=== PATIENT | female | born 1935 | race Asian ===

== ENCOUNTER → 2016-10-29 | Outpatient (CLI) | payer MEDICARE, OTHER | LOC: RAD 18:35 | PROVIDERS: ATTEND Specialist | DX: C73 Malignant neoplasm of thyroid gland (principal); C34.90 Malignant neoplasm of unspecified part of unspecified bronchus or lung | CPT/HCPCS: 78815; A9552 ==

== ENCOUNTER 2017-08-21 08:17 | Day surgery (SDC) | payer MEDICARE, OTHER ==
[~2017-08-21 08:17] MED LIST: BUPIVACAINE HCL 0.75% INJ/PF (7.5 MG/1 ML) 10 ML SDV OD PRN; KETOROLAC TROMETHAMINE 0.45% 4 DROP/0.4 ML DROPERETTE OD PRN; LIDOCAINE 4% INJ/PF (40 MG/ML) 5 ML AMPUL OD PRN; MIDAZOLAM 2 MG/2 ML INJ ONE
[2017-08-21] MEDS: TROPICAMIDE 1% OPH SOLN 3 ML OD PRN ×3 (08:34→09:10)
[2017-08-21] MEDS: CYCLOPENTOLATE 0.2%/PHENYLEPHRINE 1% OPH SOLN 2 ML OD PRN ×3 (08:34→09:09)
[2017-08-21] MEDS: BESIFLOXACIN HCL 0.6% OPH SUSP 5 ML BOTTLE OD PRN ×3 (08:35→09:44)
[2017-08-21] MEDS: TETRACAINE HCL 0.5% OPH SOLN 0.6 ML DROPERETTE OD PRN ×2 (08:36→09:10)
[2017-08-21] MEDS ORDERED: EPINEPHRINE INJ/PF 1 MG/1 ML AMPULE ONE (08:45)
[2017-08-21] MEDS ORDERED: CHONDR SU A NA/HYALUR INTRAOC KIT (SURGICARE) ONE (08:46)
[2017-08-21] MEDS ORDERED: LIDOCAINE 1% INJ-PF (10 MG/ML) 30 ML SDV ONE (08:46)
--- NOTE | 2017-08-21 09:59 | [facility] OPERATIVE REPORT E ---
[facility] Operative Report NAME: YADIRA RIOS AGE: 82Y DATE OF SURGERY: 08/21/2017 ROOM: PREOPERATIVE DIAGNOSIS: Cataract, right eye. POSTOPERATIVE DIAGNOSIS: Cataract, right eye. PROCEDURE PERFORMED: Phacoemulsification with posterior chamber intraocular lens, right eye. SURGEON: MIRNA MCCRARY M.D. ANESTHESIA: Topical with MAC. INDICATIONS FOR SURGERY: Difficulty reading captions on TV and night driving. Best corrected visual acuity 20/30. PROCEDURE: The patient was brought to the Operating Room and placed on the operative table. Following tetracaine drops, topical anesthesia was administered. This consisted of instrument wipe pledgets soaked in a solution of 4% Xylocaine mixed with 0.75% Marcaine in a 1:2 ratio. A 2 x 1 cm pledget was placed in the superior fornix. A 1 x 1 cm pledget was placed in the inferior fornix. The eye was patched shut for 5 minutes. The patch was removed. The eye was sterilely prepped and draped in the usual manner. Lid speculum was placed in the eye. The pledgets were removed and 4-0 black silk sutures were placed around the superior and the inferior rectus muscles to be used as traction. A conjunctival peritomy was made at the 10 o'clock position. Hemostasis was obtained with bipolar cautery. A posterior limbal groove was created using a crescent knife and dissected anteriorly towards the cornea. A sharp point blade was used to create a paracentesis site at the 2 o'clock position. A 2.4 mm keratome was used to enter the anterior chamber through the groove. Viscoelastic was injected into the anterior chamber. An anterior capsulotomy was performed using Utrata forceps in a capsulorrhexis fashion. Hydrodissection and hydrodelineation were performed. Phacoemulsification was performed in wgkxfq-msp-sozlzcw technique. A total of 6.21 CDE phaco time was used. Following this, the I/A unit was used to remove residual cortex. Viscoelastic was injected into the capsular bag. Intraocular lens model [id number], 19.0 diopters, serial number [id number], was placed in the capsular bag. The I/A unit was used to remove residual viscoelastic. The wound was seen to be watertight under high and low pressure, and no sutures were placed. The intraocular lens was well centered. The pressure was adjusted in the eye to normal pressure. The 4-0 black silk sutures and lid speculum were removed. The eye was shielded after Besivance drops were placed. The patient tolerated the procedure well and was sent to the Recovery Room in good condition. DICTATING PHYSICIAN: MIRNA MCCRARY M.D. [id number] PHY#: [id number] ID: [id number] JOB#: [id number] ACCT: [id number] cc:MIRNA MCCRARY M.D. >
--- NOTE | 2017-08-21 10:00 | [facility] DISCHARGE SUMMARY E ---
[facility] Discharge Summary NAME: YADIRA RIOS AGE: 82Y ADMITTED: 08/21/2017 DISCHARGED: 08/21/2017 FINAL DIAGNOSIS: Cataract, right eye. HOSPITAL COURSE: The patient is an 82-year-old lady undergoing uneventful cataract extraction with intraocular lens implant, right eye, on 08/21/2017. She will be discharged to home. She was instructed to resume preoperative medications, to take Tylenol as needed for discomfort, to keep her eye shielded, to use Besivance, Durezol and Ilevro at 3 p.m. and 8 p.m., and to follow up in my office in 1 day. DICTATING PHYSICIAN: MIRNA MCCRARY M.D. [id number] PHY#: [id number] ID: [id number] JOB#: [id number] ACCT: [id number] cc:MIRNA MCCRARY M.D. >
== END 2017-08-21 10:29 | disposition home or self-care (01) ==
LOC: SC 08:17
PROVIDERS: ATTEND Ophthalmology
DX: H25.813 Combined forms of age-related cataract, bilateral (principal); H40.013 Open angle with borderline findings, low risk, bilateral; H04.123 Dry eye syndrome of bilateral lacrimal glands; H35.363 Drusen (degenerative) of macula, bilateral; E03.9 Hypothyroidism, unspecified; M19.90 Unspecified osteoarthritis, unspecified site; F03.90 Unspecified dementia, unspecified severity, without behavioral disturbance, psychotic disturbance, mood disturbance, and anxiety; I10 Essential (primary) hypertension; Z79.899 Other long term (current) drug therapy
CPT/HCPCS: 66984; V2632; J2250; J3490 ×4; A9270; J0171

== ENCOUNTER 2017-09-11 10:04 | Day surgery (SDC) | payer MEDICARE, OTHER ==
[~2017-09-11 10:04] MED LIST changes: -BUPIVACAINE HCL 0.75% INJ/PF (7.5 MG/1 ML) 10 ML SDV OD PRN; +BUPIVACAINE HCL 0.75% INJ/PF (7.5 MG/1 ML) 10 ML SDV OS PRN; +CHONDR SU A NA/HYALUR INTRAOC KIT (SURGICARE) ONE; +EPINEPHRINE INJ/PF 1 MG/1 ML AMPULE ONE; -KETOROLAC TROMETHAMINE 0.45% 4 DROP/0.4 ML DROPERETTE OD PRN; +KETOROLAC TROMETHAMINE 0.45% 4 DROP/0.4 ML DROPERETTE OS PRN; -LIDOCAINE 4% INJ/PF (40 MG/ML) 5 ML AMPUL OD PRN; +LIDOCAINE 4% INJ/PF (40 MG/ML) 5 ML AMPUL OS PRN; -MIDAZOLAM 2 MG/2 ML INJ ONE
[2017-09-11] MEDS: CYCLOPENTOLATE 0.2%/PHENYLEPHRINE 1% OPH SOLN 2 ML OS PRN ×3 (10:29→10:49)
[2017-09-11] MEDS: TROPICAMIDE 1% OPH SOLN 3 ML OS PRN ×3 (10:29→10:49)
[2017-09-11] MEDS: BESIFLOXACIN HCL 0.6% OPH SUSP 5 ML BOTTLE OS PRN ×3 (10:29→11:48)
[2017-09-11] MEDS: TETRACAINE HCL 0.5% OPH SOLN 0.6 ML DROPERETTE OS PRN ×2 (10:30→10:49)
[2017-09-11] MEDS ORDERED: FENTANYL CITRATE INJ/PF 100 MCG/2 ML AMPUL ONE (10:55)
[2017-09-11] MEDS ORDERED: MIDAZOLAM 2 MG/2 ML INJ ONE (10:55)
--- NOTE | 2017-09-11 11:58 | [facility] OPERATIVE REPORT E ---
[facility] Operative Report NAME: YADIRA RIOS AGE: 82Y DATE OF SURGERY: 09/11/2017 ROOM: PREOPERATIVE DIAGNOSIS: CATARACT, LEFT EYE. POSTOPERATIVE DIAGNOSIS: CATARACT, LEFT EYE. PROCEDURE PERFORMED: Phacoemulsification with posterior chamber intraocular lens, left eye. SURGEON: Ginger Mccrary MD ANESTHESIA: Topical with MAC. INDICATIONS FOR SURGERY: Difficulty with glare from lights with driving. Best corrected visual acuity 20/30. PROCEDURE: The patient was brought to the operating room and placed on the operative table. Following tetracaine drops, topical anesthesia was administered. This consisted of instrument wipe pledgets soaked in a solution of 4% Xylocaine mixed with 0.75% Marcaine in a 1:2 ratio. A 2 x 1 cm pledget was placed in the superior fornix. A 1 x 1 cm pledget was placed in the inferior fornix. The eye was patched shut for 5 minutes. The patch was removed. The eye was sterilely prepped and draped in the usual manner. Lid speculum was placed in the eye. The pledgets were removed. 4-0 black silk sutures were placed around the superior and the inferior rectus muscles to be used as traction. A conjunctival peritomy was made at the 10 o'clock position. Hemostasis was obtained with bipolar cautery. A posterior limbal groove was created using a crescent knife and dissected anteriorly towards the cornea. A sharp point blade was used to create a paracentesis site at the 2 o'clock position. A 2.4 mm keratome was used to enter the anterior chamber through the groove. Viscoelastic was injected into the anterior chamber. An anterior capsulotomy was performed using Utrata forceps in a capsulorrhexis fashion. Hydrodissection and hydrodelineation were performed. Phacoemulsification was performed in vuyqph-srb-ypmnqvx technique. A total of 43 seconds phaco time was used. Following this, the I/A unit was used to remove residual cortex. Viscoelastic was injected into the capsular bag. Intraocular lens Model SN60WF, 19.0 diopter, serial number [id number] was placed in the capsular bag. The I/A unit was used to remove residual viscoelastic. The wound was seen to be watertight under high and low pressure, and no sutures were placed. The intraocular lens was well centered. The pressure was adjusted in the eye to normal pressure. The 4-0 black silk sutures and lid speculum were removed. The eye was shielded after Besivance drops were placed. The patient tolerated the procedure well and was sent to the recovery room in good condition. DICTATING PHYSICIAN: GINGER MCCRARY M.D. [id number] PHY#: [id number] ID: [id number] JOB#: [id number] ACCT: [id number] cc:GINGER MCCRARY M.D. >
--- NOTE | 2017-09-11 12:04 | [facility] DISCHARGE SUMMARY E ---
[facility] Discharge Summary NAME: YADIRA RIOS AGE: 82Y ADMITTED: 09/11/2017 DISCHARGED: 09/11/2017 PREOPERATIVE DIAGNOSIS: CATARACT, LEFT EYE. POSTOPERATIVE DIAGNOSIS: CATARACT, LEFT EYE. HOSPITAL COURSE: Patient is an 82-year-old lady who underwent uneventful cataract extraction with intraocular lens implant, left eye, on 09/11/2017. DISPOSITION: She will be discharged to home. She was instructed to resume preoperative medications; take Tylenol as needed for discomfort; to keep her eye shielded; to use Besivance, Durezol, and Ilevro at 3:00 p.m. and 8:00 p.m.; and to follow up in my office in 1 day. DICTATING PHYSICIAN: MIRNA MCCRARY M.D. [id number] PHY#: [id number] ID: [id number] JOB#: [id number] ACCT: [id number] cc:MIRNA MCCRARY M.D. >
== END 2017-09-11 12:25 | disposition home or self-care (01) ==
LOC: SC 10:04
PROVIDERS: ATTEND Ophthalmology
PROC: 08RK3JZ Replacement of Left Lens with Synthetic Substitute, Percutaneous Approach (ICD-10-PCS; principal; 2017-09-11 11:30)
DX: H25.812 Combined forms of age-related cataract, left eye (principal); E03.9 Hypothyroidism, unspecified; M19.90 Unspecified osteoarthritis, unspecified site; I10 Essential (primary) hypertension; F03.90 Unspecified dementia, unspecified severity, without behavioral disturbance, psychotic disturbance, mood disturbance, and anxiety; Z79.899 Other long term (current) drug therapy; Z88.8 Allergy status to other drugs, medicaments and biological substances
CPT/HCPCS: 66984; V2632; J2250; J3490 ×3; A9270; J0171; 142; J3010

== ENCOUNTER → 2017-11-24 | Outpatient (CLI) | payer MEDICARE, OTHER ==
--- NOTE | 2017-11-24 12:25 | RADIOLOGY REPORT (SQ) ---
EXAM DESCRIPTION: MRI HEAD COMBO COMPLETED DATE/TIME: 11/24/2017 12:06 pm REASON FOR STUDY: LUNG CANCER, BRAIN METS? C34.90 MALIGNANT NEOPLASM OF UNSP PART OF UNSP BRONCHUS OR L COMPARISON: HEAD CT FROM 01/11/2009 TECHNIQUE: Multiplanar imaging includes noncontrasted T1, T2, FLAIR, Diffusion with ADC map and post gadolinium contrast T1 sequences. Images stored on PACS. CONTRAST TYPE AND DOSE: 15 mL Multihance. RENAL FUNCTION: GFR > 60. LIMITATIONS: None. FINDINGS: ANATOMY: No anomalies. Normal vascular flow voids. Pituitary fossa normal. CSF SPACES: Atrophy-induced prominence of CSF spaces and ventricles. CEREBRUM: 2 adjacent enhancing lesions versus single multilobulated enhancing lesion involving the le ft posterior frontal lobe with marked surrounding vasogenic edema compatible with metastatic disease. The more anterior inferior component measures 8 x 9 mm and the more posterosuperior component measu res 12 x 11 mm. Together these measure 19 mm in the craniocaudal dimension. No additional enhancing lesions identified. There is additional high signal intensity lesions scattered throughout the whit e matter on FLAIR imaging with distribution suggesting chronic micro-vascular ischemic change. No macario dence of hemorrhage. No extraaxial fluid collection or acute ischemic change. POSTERIOR FOSSA: No signal alteration. No hemorrhage. No edema, masses, or mass effect. Internal edgar tory canals, cerebello-pontine angles, mastoids normal. No enhancing lesions. ORBITS: No masses. Globes normal. PARANASAL SINUSES: No fluid levels. Mucosa normal. DIFFUSION: Normal. No evidence of recent infarct. OTHER: No other significant finding. IMPRESSION: 2 adjacent enhancing lesions versus single multilobulated enhancing lesion within the le ft posterior frontal lobe compatible with metastatic disease as detailed above. No large territory i nfarction, hemorrhage, or significant mass effect. EVIDENCE OF ACUTE STROKE: NO. TECHNICAL DOCUMENTATION: JOB ID: [id number]- All Rights Reserved Reading location - IP/workstation name: [email or web address]
== END ==
LOC: RAD 10:51
PROVIDERS: ATTEND Internal Medicine Hematology & Oncology
DX: C79.31 Secondary malignant neoplasm of brain (principal); C34.90 Malignant neoplasm of unspecified part of unspecified bronchus or lung
CPT/HCPCS: 82565; 70553; A9577

== ENCOUNTER → 2017-11-27 | Outpatient (CLI) | payer MEDICARE, OTHER ==
--- NOTE | 2017-11-28 09:58 | RADIOLOGY REPORT (SQ) ---
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 TECHNIQUE: Blood glucose level was verified. Above dose of FDG was injected intravenously. 2-D seg mented attenuation correction images were obtained from the base of the skull to the midthighs. Nonc ontrast CT images were obtained for attenuation correction and fusion with emission images. CT image s were performed without oral or intravenous contrast and are not sensitive for parenchymal lesions. A series of overlapping emission PET images were obtained. [facility] by the radiologist. Images stored on PACS. LIMITATIONS: None. FINDINGS: HEAD AND NECK: Post thyroidectomy. A 5 mm nodule in the right thyroidectomy head is prese nt on axial image 51 with SUV 5.6 (stable size, with uptake SUV 4.2 PET-CT 10/29/2016). CHEST: No areas of abnormal metabolic activity in the chest. 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 ABDOMEN AND PELVIS: No areas of abnormal metabolic activity in the abdomen or pelvis. Expected physi ologic activity is present in the genitourinary system and bowel. PROXIMAL LOWER EXTREMITIES: No areas of abnormal metabolic activity in the soft tissues of the lower extremities. BONES: No abnormal metabolic activity in the visualized skeleton. ADDITIONAL CT FINDINGS: 4 mm noncalcified granuloma left lower lobe unchanged. 2.7 cm hepatic cyst l eft lobe liver. 3.2 cm cyst right upper pole kidney. 2.7 cm cyst left lower pole kidney. Colonic d iverticulosis without CT signs of acute diverticulitis. Degenerative changes lumbar spine OTHER: Liver background activity 2.4 SUV. Blood pool background activity 1.7 SUV. IMPRESSION: Stable punctate focus of increased uptake right thyroidectomy bed as compared to 10/30/19 17. TECHNICAL DOCUMENTATION: JOB ID: [id number] [employer]- All Rights Reserved Reading location - IP/workstation name: [email or web address]
== END ==
LOC: RAD 16:53
PROVIDERS: ATTEND Internal Medicine Hematology & Oncology
DX: C34.90 Malignant neoplasm of unspecified part of unspecified bronchus or lung (principal); C79.31 Secondary malignant neoplasm of brain; C73 Malignant neoplasm of thyroid gland
CPT/HCPCS: 78815; A9552

== ENCOUNTER 2017-12-15 22:22 | Inpatient (IN) | payer MEDICARE, OTHER ==
[2017-12-15] MEDS ORDERED: NORMAL SALINE 1000 ML 500 ML IV ONE (23:05)
--- NOTE | 2017-12-15 23:55 | RADIOLOGY REPORT (SQ) ---
EXAM DESCRIPTION: CT HEAD WITHOUT IV CONTRAST CLINICAL HISTORY: 82 years Female, fall, possible syncope COMPARISON: None. TECHNIQUE: No contrast. Coronal and sagittal reformat. This exam was performed according to our departmental dose-optimization program, which includes automated exposure control, adjustment of the mA and/or kV according to patient size and/or use of iterative reconstruction technique. FINDINGS: No hemorrhage or infarct. Patient has known left frontoparietal lesions demonstrated on prior MRI from November 2017 not discerned on this noncontrast CT. No mass effect, or midline shift. Mild cerebral volume loss. Mild white matter microangiopathy. Brain and extra-axial structures appear otherwise intact. IMPRESSION: No acute CT findings. Patient has known left frontoparietal lesions demonstrated on prior MRI from November 2017 not discerned on this noncontrast CT.
[2017-12-16 00:32] LABS: ABSOLUTE EOSINOPHILS # (AUTO) 0.2 10^3/uL (0.0-0.6); ABSOLUTE LYMPHOCYTES (AUTO) 0.7 10^3/uL (0.5-4.7); ABSOLUTE MONOCYTES (AUTO) 0.6 10^3/uL (0.1-1.4); ABSOLUTE NEUT (AUTO) 3.6 10^3/uL (1.7-8.2); BASOPHILS % (AUTO) 0.5 % (0-2); EOSINOPHILS % (AUTO) 4.4 % (0-6); HEMATOCRIT 41.9 % (36.0-47.0); LYMPHOCYTES % (AUTO) 13.2 % (13-45); MEAN CORPUSCULAR HEMOGLOBIN 30.3 pg (27.0-33.4); MEAN CORPUSCULAR HGB CONC 33.4 g/dL (32.0-36.0); MEAN CORPUSCULAR VOLUME 91 fl (80-97); MONOCYTES % (AUTO) 12.5 % (3-13); PLATELET COUNT 162 10^3/uL (150-450); RED BLOOD COUNT 4.62 10^6/uL (3.72-5.28); RED CELL DISTRIBUTION WIDTH 13.2 % (11.5-14.0); SEGMENTED NEUTROPHILS % (AUTO) 69.4 % (42-78); TOTAL CELLS COUNTED % (AUTO) 100 %; WHITE BLOOD COUNT 5.2 10^3/uL (4.0-10.5)
[2017-12-16 00:54] LABS: ALANINE AMINOTRANSFERASE 43 U/L (9-52); ALBUMIN 3.4 g/dL (3.5-5.0); ALKALINE PHOSPHATASE 53 U/L (38-126); ANION GAP 11 (5-19); ASPARTATE AMINO TRANSFERASE 18 U/L (14-36); BILIRUBIN,DIRECT 0.2 mg/dL (0.0-0.4); BILIRUBIN,TOTAL 0.8 mg/dL (0.2-1.3); BLOOD UREA NITROGEN 15 mg/dL (7-20); CALCIUM 8.7 mg/dL (8.4-10.2); CARBON DIOXIDE 31 mmol/L (22-30); CHLORIDE 102 mmol/L (98-107); CREATINE KINASE 21 U/L (30-135); GLUCOSE 100 mg/dL (75-110); POTASSIUM 3.3 mmol/L (3.6-5.0); SODIUM 143.6 mmol/L (137-145); TOTAL PROTEIN 6.2 g/dL (6.3-8.2)
[2017-12-16 01:05] LABS: APPEARANCE,URINE SLIGHTLY-CLOUDY; BILIRUBIN,URINE NEGATIVE (NEGATIVE); COLOR,URINE YELLOW; GLUCOSE, URINE NEGATIVE (NEGATIVE); KETONES,URINE NEGATIVE (NEGATIVE); LEUKOCYTE ESTERASE,URINE MODERATE (NEGATIVE); NITRITE,URINE NEGATIVE (NEGATIVE); PROTEIN,URINE NEGATIVE (NEGATIVE); URINE SPECIFIC GRAVITY 1.005; UROBILINOGEN,URINE NEGATIVE mg/dL (<2.0)
[2017-12-16 01:11] LABS: TROPONIN I < 0.012 ng/mL
[2017-12-16] MEDS ORDERED: NORMAL SALINE 1000 ML 500 ML IV ONE (02:12)
[2017-12-16] MEDS ORDERED: MAG HYDROX/AL HYDROX/SIMETH SUSP 30 ML UDCUP PO PRN (04:24)
[2017-12-16] MEDS ORDERED: POTASSIUM CHLORIDE 10 MEQ TABLET.SA PO ONE (04:24)
[2017-12-16] MEDS ORDERED: ACETAMINOPHEN 325 MG TABLET PO PRN (04:24)
[2017-12-16] MEDS ORDERED: MAGNESIUM HYDROXIDE SUSP 30 ML UDCUP PO PRN (04:24)
--- NOTE | 2017-12-16 04:25 | ER Document Report ---
ED Dizziness/Weakness - General Chief Complaint: General Weakness Stated Complaint: GENERAL WEAKNESS Time Seen by Provider: 12/15/17 22:31 Mode of Arrival: Medic Information source: Parent Notes: Patient is an 82-year-old female who presents to the emergency department via EMS with complaints of alleged fall. Patient is alert and oriented and reports no complaints. Patient denies any headache, denies any nausea and denies any other pain. Patient denies hitting her head when asked and states that she remembers falling. Family arrives to bedside within a few minutes of patient arrival and family states that they went to check on her at her house which is next door and found her lying face first on the bed and confused. They then left to get another family member and when the came back patient was found on floor, minimally responsive. They then state that as soon as they were able to arouse the patient she began vomiting. Patient has a history of lung cancer with recent diagnosis of brain metastasis. Patient has had decreased oral intake over the last 7 days according to the family. Patient is seen by Dr. Clarke who did call and is requesting an update once patient's workup is done. TRAVEL OUTSIDE OF THE [place] IN LAST 30 DAYS: No - Related Data Allergies/Adverse Reactions: No Known Allergies Allergy (Verified 08/20/17 11:10) Past Medical History - General Information source: Patient, Relative - Social History Smoking Status: Never Smoker Frequency of alcohol use: None Drug Abuse: None Family History: Reviewed & Not Pertinent Patient has suicidal ideation: No Patient has homicidal ideation: No - Past Medical History Cardiac Medical History: Reports: Hx Hypertension - MEDICATED Denies: Hx Heart Attack - HEART CATH 1994 Pulmonary Medical History: Denies: Hx Asthma Neurological Medical History: Denies: Hx Cerebrovascular Accident, Hx Seizures Renal/ Medical History: Denies: Hx Peritoneal Dialysis GI Medical History: Denies: Hx Hepatitis, Hx Hiatal Hernia, Hx Ulcer Infectious Medical History: Denies: Hx Hepatitis Past Surgical History: Denies: Hx Hysterectomy, Hx Mastectomy, Hx Open Heart Surgery, Hx Pacemaker Review of Systems - Review of Systems Constitutional: No symptoms reported EENT: No symptoms reported Cardiovascular: No symptoms reported Respiratory: No symptoms reported Gastrointestinal: No symptoms reported Genitourinary: No symptoms reported Female Genitourinary: No symptoms reported Musculoskeletal: No symptoms reported Skin: No symptoms reported Hematologic/Lymphatic: No symptoms reported Neurological/Psychological: No symptoms reported Physical Exam - Vital signs Vitals: Pulse Ox 93 12/15/17 22:45 - Notes Notes: PHYSICAL EXAMINATION: GENERAL: Well-appearing, well-nourished and in no acute distress. HEAD: Atraumatic, normocephalic. EYES: Pupils equal round and reactive to light, extraocular movements intact, conjunctiva are normal. ENT: Nares patent, oropharynx clear without exudates. Moist mucous membranes. NECK: Normal range of motion, supple without lymphadenopathy LUNGS: Breath sounds clear to auscultation bilaterally and equal. No wheezes rales or rhonchi. HEART: Regular rate and rhythm without murmurs ABDOMEN: Soft, nontender, nondistended abdomen. No guarding, no rebound. No masses appreciated. Female : deferred Musculoskeletal: Normal range of motion, no pitting or edema. No cyanosis. NEUROLOGICAL: Cranial nerves grossly intact. Normal speech, normal gait. Normal sensory, motor exams PSYCH: Normal mood, normal affect. SKIN: Warm, Dry, normal turgor, no rashes or lesions noted. Course - Re-evaluation Re-evalutation: 82-year-old female presenting with complaint of fall via EMS. On initial exam patient is alert and oriented and denies any complaints or injury. Upon further discussion with patient's family, it is found that indeed patient did fall, had a possible syncopal episode with subsequent vomiting. Will provide IV fluids and check basic labs such as CBC, comprehensive, cardiac enzymes, urinalysis, EKG and head CT to evaluate for cause of syncope such as infection, cardiac event or acute intracranial process. Patient has remained alert and oriented and normotensive during workup. CBC is unremarkable, chemistry reveals K+ of 3.3, head CT with no acute findings, EKG sinus rhythm with no ectopy. Orthostatic vital signs ordered and patient became hypotensive when standing, patient's blood pressure dropped to 77/57. Additional 500 mL of normal saline bolus given, potassium 40meq given p.o. Tax Assessor Dr. Clarke who suggest that the patient would benefit from a admission for the orthostatic hypotension. Contacted hospitalist, Dr. Woodruff who requested that I add on a magnesium level. Dr. Woodruff did agree to admit the patient to telemetry. Patient and family are aware of plan of care and are in agreement. Patient is hemodynamically stable at time of admission. 05/13/18 06:20 - Vital Signs Vital signs: Temp Pulse Resp BP Pulse Ox 97.6 F 70 16 113/64 95 12/15/17 22:46 12/16/17 02:00 12/15/17 23:01 12/16/17 05:11 12/16/17 05:11 - Laboratory Result Diagrams: 12/15/17 00:09 12/15/17 00:09 Laboratory results interpreted by me: 12/15/17 12/16/17 12/16/17 00:09 00:33 01:55 Potassium 3.3 L Carbon Dioxide 31 H Creatine Kinase 21 L Total Protein 6.2 L Albumin 3.4 L TSH 0.41 L Ur Leukocyte Esterase MODERATE H Urine Ascorbic Acid 20 H Discharge - Discharge Clinical Impression: Orthostatic hypotension Syncope Qualifiers: Syncope type: unspecified Qualified Code(s): R55 - Syncope and collapse Condition: Stable Disposition: ADMITTED INPATIENT Admitting Provider: Hospitalist Unit Admitted: Telemetry
[2017-12-16] MEDS ORDERED: NORMAL SALINE 1000 ML 1,000 ML IV SCH (04:30)
[2017-12-16] MEDS ORDERED: MAGNESIUM SULFATE/D5W 1 GM/100 ML RTUPB IV ONE (05:00)
[2017-12-16] MEDS ORDERED: HEPARIN SOD (PORCINE) 5,000 UNIT/ML 1 ML SYRINGE SUBCUT SCH (06:00)
--- NOTE | 2017-12-16 06:53 | PDOC H&P ---
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 Patient presents with 2 hours of altered mental status found after apparently passing out onto the bed in a prone position. She denies palpitations, headache chest pain or dizziness prior and there was no subsequent injury, incontinence, limb shaking or postictal confusion. In the emergency room she is at baseline but found to have orthostatic hypotension with a blood pressure 77/57 she receives 1 L of normal saline and referred to the hospitalist for admission patient denies complaints. Past Medical History Cardiac Medical History: Reports: Hypertension - MEDICATED Denies: Myocardial Infarction - HEART CATH 1994 Pulmonary Medical History: Reports: None Denies: Asthma EENT Medical History: Reports: None Neurological Medical History: Reports: None Denies: Seizures Endocrine Medical History: Reports: None Renal/ Medical History: Reports: None Malignancy Medical History: Reports: None GI Medical History: Reports: None Denies: Hepatitis, Hiatal Hernia Musculoskeltal Medical History: Reports: None Skin Medical History: Reports: None Psychiatric Medical History: Reports: None Traumatic Medical History: Reports: None Hematology: Reports: None Denies: Anemia, Sickle Cell Disease Infectious Medical History: Reports: None Past Surgical History Past Surgical History: Denies: Amputation, Hysterectomy, Mastectomy, Pacemaker Social History Information Source: Patient, Relative, POA - Power of Chief Media Officer, [facility] Records Lives with: Family Smoking Status: Never Smoker Frequency of Alcohol Use: None Drugs: None - Advance Directive Resuscitation Status: Full Code Family History Family History: Hypertension Parental Family History Reviewed: Yes Children Family History Reviewed: Yes Sibling(s) Family History Reviewed.: Yes Medication/Allergy Home Medications: Amlodipine Besylate 5 mg PO DAILY 08/20/17 Ascorbic Acid [Vitamin C] 2,000 mg PO DAILY 08/20/17 Cyanocobalamin (Vitamin B-12) [Vitamin B12] 5,000 mcg PO DAILY 08/20/17 Levothyroxine Sodium [Synthroid 0.1 mg Tablet] 0.1 mcg PO QAM 08/20/17 Multivitamin [Multivitamins] 1 each PO DAILY 08/20/17 [place]-3S/Dha/Epa/Fish Oil [Fish Oil 1,200 mg Softgel] 2 each PO DAILY 08/20/17 Ubidecarenone/Vit E Acet [Co Q-10 100 mg Softgel] 1 each PO ONCE PRN 08/20/17 Dronabinol [Marinol] 5 mg PO DAILY 12/16/17 Allergies/Adverse Reactions: No Known Allergies Allergy (Verified 08/20/17 11:10) Review of Systems Constitutional: PRESENT: as per HPI, anorexia, fatigue, other - Poor appetite Eyes: ABSENT: visual disturbances Ears: ABSENT: hearing changes Cardiovascular: ABSENT: chest pain, dyspnea on exertion, edema, orthropnea, palpitations Respiratory: ABSENT: cough, hemoptysis Gastrointestinal: ABSENT: abdominal pain, constipation, diarrhea, hematemesis, hematochezia, nausea, vomiting Genitourinary: ABSENT: dysuria, hematuria Musculoskeletal: ABSENT: joint swelling Integumentary: ABSENT: rash, wounds Neurological: ABSENT: abnormal gait, abnormal speech, confusion, dizziness, focal weakness, syncope Psychiatric: ABSENT: anxiety, depression, homidical ideation, suicidal ideation Endocrine: ABSENT: cold intolerance, heat intolerance, polydipsia, polyuria Hematologic/Lymphatic: ABSENT: easy bleeding, easy bruising Physical Exam Vital Signs: Temp Pulse Resp BP Pulse Ox 97.6 F 70 16 113/64 92 12/16/17 06:00 12/16/17 02:00 12/15/17 23:01 12/16/17 05:11 12/16/17 06:00 General appearance: PRESENT: no acute distress, cooperative. ABSENT: disheveled , hard of hearing Head exam: PRESENT: atraumatic, normocephalic Eye exam: PRESENT: conjunctiva pink, EOMI, PERRLA. ABSENT: scleral icterus Ear exam: PRESENT: normal external ear exam Mouth exam: PRESENT: dry mucosa, neck supple, tongue midline Neck exam: ABSENT: carotid bruit, JVD, lymphadenopathy, thyromegaly Respiratory exam: PRESENT: clear to auscultation corina. ABSENT: rales, rhonchi, wheezes Cardiovascular exam: PRESENT: RRR. ABSENT: diastolic murmur, rubs, systolic murmur Pulses: PRESENT: normal dorsalis pedis pul Vascular exam: PRESENT: normal capillary refill GI/Abdominal exam: PRESENT: normal bowel sounds, soft. ABSENT: distended, guarding, mass, organolmegaly, rebound, tenderness Rectal exam: PRESENT: deferred Extremities exam: PRESENT: full ROM. ABSENT: calf tenderness, clubbing, pedal edema Neurological exam: PRESENT: alert, awake, oriented to person, oriented to place , oriented to time, oriented to situation, CN II-XII grossly intact. ABSENT: motor sensory deficit Psychiatric exam: PRESENT: appropriate affect, normal mood. ABSENT: homicidal ideation, suicidal ideation Skin exam: PRESENT: dry, intact, warm. ABSENT: cyanosis, rash Results Impressions: Head CT 12/15/17 23:02 IMPRESSION: No acute CT findings. Patient has known left frontoparietal lesions demonstrated on prior MRI from November 2017 not discerned on this noncontrast CT. Assessment & Plan - Diagnosis (1) Orthostatic hypotension Is this a current diagnosis for this admission?: Yes Plan: Likely secondary to poor p.o. intake versus Marinol, IV fluid challenge reevaluate orthostatic blood pressures and his therapy evaluation (2) Syncope Qualifiers: Syncope type: unspecified Qualified Code(s): R55 - Syncope and collapse Is this a current diagnosis for this admission?: Yes Plan: Secondary to #1. (3) Stage IV squamous cell carcinoma of lung Is this a current diagnosis for this admission?: Yes Plan: Supportive care consultation with oncologist Dr. Whitmore as needed - Time Time Spent: 30 to 50 Minutes - Inpatient Certification Medical Necessity: Need Close Monitoring Due to Risk of Patient Decompensation
--- NOTE | 2017-12-16 07:41 | EKG REPORT ---
SEVERITY:- ABNORMAL ECG - SINUS RHYTHM FIRST DEGREE AV BLOCK RIGHT AXIS DEVIATION PROBABLE INFERIOR INFARCT, OLD : Confirmed by: Nikolay Shelby MD 16-Dec-2017 07:41:26
[2017-12-16] MEDS ORDERED: IPRATROPIUM/ALBUTEROL 0.5-2.5 MG/3 ML AMPUL NEB SCH (08:00)
[2017-12-16 09:31] LABS: PROTHROMBIN TIME 14.8 SEC (11.4-15.4)
[2017-12-16 09:32] LABS: HEMATOCRIT 39.8 % (36.0-47.0); HEMOGLOBIN 13.3 g/dL (12.0-15.5); MEAN CORPUSCULAR HEMOGLOBIN 30.1 pg (27.0-33.4); MEAN CORPUSCULAR HGB CONC 33.4 g/dL (32.0-36.0); MEAN CORPUSCULAR VOLUME 90 fl (80-97); PARTIAL THROMBOPLASTIN TIME 33.9 SEC (23.5-35.8); PLATELET COUNT 145 10^3/uL (150-450); RED BLOOD COUNT 4.41 10^6/uL (3.72-5.28); WHITE BLOOD COUNT 4.2 10^3/uL (4.0-10.5)
[2017-12-16] MEDS: LEVOTHYROXINE SODIUM 0.1 MG TABLET PO SCH (09:40)
[2017-12-16] MEDS: DOCUSATE SODIUM 100 MG CAPSULE PO SCH ×2 (09:40→18:22)
[2017-12-16] MEDS: ENOXAPARIN SODIUM INJ 40 MG/0.4 ML DISP.SYRIN SUBCUT SCH (09:45)
[2017-12-16 09:48] LABS: ANION GAP 7 (5-19); BLOOD UREA NITROGEN 10 mg/dL (7-20); CALCIUM 7.9 mg/dL (8.4-10.2); CARBON DIOXIDE 30 mmol/L (22-30); CHLORIDE 106 mmol/L (98-107); GLUCOSE 101 mg/dL (75-110); POTASSIUM 3.7 mmol/L (3.6-5.0); SODIUM 143.1 mmol/L (137-145)
[2017-12-16] MEDS ORDERED: DRONABINOL 2.5 MG CAPSULE PO SCH (10:00)
[2017-12-16 10:02] LABS: FREE T4 (FREE THYROXINE) 1.64 ng/dL (0.78-2.19)
[2017-12-16 10:16] LABS: THYROID STIMULATING HORMONE 0.32 uIU/mL (0.47-4.68)
[2017-12-16] MEDS ORDERED: ALBUTEROL SULFATE 0.083% NEB 2.5 MG/3 ML AMPUL NEB PRN (10:43)
--- NOTE | 2017-12-16 11:13 | Progress Note ---
Provider Note Provider Note: Patient seen and examined. 82 yr old female with metastatic lung cancer who recently started brain RT, presented with syncope and was found to have orthostatic hypotension. Is receiving IV fluids. Po intake remains poor. Vitals: Temperature 97.6F Blood pressure 108/64 Heart rate 68 Respiratory rate 16 Satting 94% on 2 L Lungs: Normal respiratory effort, bilateral rhonchi, no wheezing Cardiac: S1-S2 regular no peripheral edema Abdomen: Soft, no focal tenderness Skin: Warm and dry Assessment: Orthostatic hypotension Syncope Stage IV squamous cell lung cancer Plan: Per H&P.
[2017-12-16] MEDS: NORMAL SALINE 1000 ML 1,000 ML IV PRN ×2 (11:17→19:26)
--- NOTE | 2017-12-16 11:31 | PDOC CONSULTATION ---
Consultation Consult Date: 12/16/17 Attending physician:: JASKARAN ANDERSON Consult reason:: Stage IV lung cancer with recent brain metastasis with weakness dehydration History of Present Illness Admission Date/PCP: 12/16/17 04:31 REHANA DURAN MD Patient complains of: Fall, weakness, dehydration, stage IV lung cancer History of Present Illness: YADIRA RIOS is a 82 year old female with known history of stage IV lung cancer, 2 years ago patient had left upper lung wedge resection, of moderately differentiated carcinoma, she was then monitored thereafter until recently she was found to have brain metastasis, and she completed a course of whole brain radiation just about 1 week ago. Of note, prior to that she did have PET/CT which did not show any major uptake outside of the brain, so this looked like a brain only recurrence. Over the last 2-3 weeks she has lost considerable weight probably about 20 pounds, mostly because of poor p.o. intake, there has been taste changes and she does not feel like eating, so she really has not been doing that. She was just started on Marinol but only received 1 or 2 doses of that prior to admission. They called me from home she was found down, she was very weak and disoriented, ultimately she was brought by EMS here, she was hypotensive here, orthostatic, and she was admitted for hydration. She had a CT of the brain without contrast, and this indicated stable to improved disease, no new areas, and overall no edema or hemorrhagic changes. Past Medical History Cardiac Medical History: Reports: Hypertension - MEDICATED Denies: Myocardial Infarction - HEART CATH 1994 Pulmonary Medical History: Reports: None Denies: Asthma EENT Medical History: Reports: None Neurological Medical History: Reports: None Denies: Seizures Endocrine Medical History: Reports: None Renal/ Medical History: Reports: None Malignancy Medical History: Reports: Lung Cancer GI Medical History: Reports: None Denies: Hepatitis, Hiatal Hernia Musculoskeltal Medical History: Reports: None Skin Medical History: Reports: None Psychiatric Medical History: Reports: None Traumatic Medical History: Reports: None Hematology: Reports: None Denies: Anemia, Sickle Cell Disease Infectious Medical History: Reports: None Past Surgical History Past Surgical History: Reports: Other - Left lung wedge resection Denies: Amputation, Hysterectomy, Mastectomy, Pacemaker Social History Information Source: Patient Lives with: Family Smoking Status: Never Smoker Frequency of Alcohol Use: None Drugs: None - Advance Directive Resuscitation Status: Full Code Family History Family History: Hypertension Parental Family History Reviewed: Yes Children Family History Reviewed: Yes Sibling(s) Family History Reviewed.: Yes Medication/Allergy Home Medications: Amlodipine Besylate [Norvasc 5 mg Tablet] 5 mg PO DAILY 12/16/17 Dronabinol [Marinol] 5 mg PO BID 12/16/17 Levothyroxine Sodium [Synthroid 0.1 mg Tablet] 0.1 mg PO Q6AM 12/16/17 Allergies/Adverse Reactions: No Known Allergies Allergy (Verified 08/20/17 11:10) Review of Systems Constitutional: PRESENT: fatigue, weakness, weight loss Cardiovascular: ABSENT: chest pain, dyspnea on exertion, edema, orthropnea, palpitations Gastrointestinal: ABSENT: abdominal pain, constipation, diarrhea, hematemesis, hematochezia, nausea, vomiting Neurological: PRESENT: frequent falls, lack of coordination, weakness Psychiatric: ABSENT: anxiety, depression, homidical ideation, suicidal ideation Physical Exam Vital Signs: Temp Pulse Resp BP Pulse Ox 97.6 F 70 16 113/64 94 12/16/17 06:00 12/16/17 02:00 12/15/17 23:01 12/16/17 05:11 12/16/17 08:00 Intake & Output 12/15/17 12/16/17 12/17/17 06:59 06:59 06:59 Weight 63.503 kg General appearance: PRESENT: no acute distress, well-developed, well-nourished Head exam: PRESENT: atraumatic, normocephalic Eye exam: PRESENT: conjunctiva pink, EOMI, PERRLA. ABSENT: scleral icterus Ear exam: PRESENT: normal external ear exam Mouth exam: PRESENT: moist, tongue midline Neck exam: ABSENT: carotid bruit, JVD, lymphadenopathy, thyromegaly Respiratory exam: PRESENT: clear to auscultation corina. ABSENT: rales, rhonchi, wheezes Cardiovascular exam: PRESENT: RRR. ABSENT: diastolic murmur, rubs, systolic murmur Pulses: PRESENT: normal dorsalis pedis pul Vascular exam: PRESENT: normal capillary refill GI/Abdominal exam: PRESENT: normal bowel sounds, soft. ABSENT: distended, guarding, mass, organolmegaly, rebound, tenderness Rectal exam: PRESENT: deferred Extremities exam: PRESENT: full ROM. ABSENT: calf tenderness, clubbing, pedal edema Neurological exam: PRESENT: alert, awake, oriented to person, oriented to place , oriented to time, oriented to situation, CN II-XII grossly intact. ABSENT: motor sensory deficit Psychiatric exam: PRESENT: appropriate affect, normal mood. ABSENT: homicidal ideation, suicidal ideation Skin exam: PRESENT: dry, intact, warm. ABSENT: cyanosis, rash Results Laboratory Results: 12/16/17 08:56 12/16/17 08:56 12/16/17 12/16/17 12/16/17 08:56 08:56 08:56 WBC RBC Hgb Hct MCV MCH MCHC RDW Plt Count Sodium 143.1 Potassium 3.7 Chloride 106 Carbon Dioxide 30 Anion Gap 7 BUN 10 Creatinine 0.55 Est GFR ( Amer) > 60 Est GFR (Non-Af Amer) > 60 Glucose 101 Calcium 7.9 L Phosphorus 3.1 TSH 0.32 L Free T4 1.64 12/16/17 08:56 WBC 4.2 RBC 4.41 Hgb 13.3 Hct 39.8 MCV 90 MCH 30.1 MCHC 33.4 RDW 13.0 Plt Count 145 L Sodium Potassium Chloride Carbon Dioxide Anion Gap BUN Creatinine Est GFR ( Amer) Est GFR (Non-Af Amer) Glucose Calcium Phosphorus TSH Free T4 Impressions: Head CT 12/15/17 23:02 IMPRESSION: No acute CT findings. Patient has known left frontoparietal lesions demonstrated on prior MRI from November 2017 not discerned on this noncontrast CT. Status: Image reviewed by me Assessment & Plan - Diagnosis (1) Orthostatic hypotension Is this a current diagnosis for this admission?: Yes Plan: Likely related to dehydration, today had a long discussion with patient and family, explained that this is because of taste changes secondary to whole brain radiation, it will get better. We encouraged increasing supplement shake intake. We will monitor with aggressive hydration over the next 24 hours. (2) Stage IV squamous cell carcinoma of lung Qualifiers: Laterality: left Qualified Code(s): C34.92 - Malignant neoplasm of unspecified part of left bronchus or lung Is this a current diagnosis for this admission?: Yes Plan: Previous stage IV lung cancer, no major disease outside of the brain, the brain is been appropriately treated. She will be aggressively hydrated and we will consider further therapy as an outpatient. However we are encouraged with the findings on the CT of the head, and I believe she will do well for hopefully a longer period of time. - Time Time Spent: Greater than 70 Minutes Anticipated discharge: Home Within: within 48 hours - Inpatient Certification Based on my medical assessment, after consideration of the patient's comorbidities, presenting symptoms, or acuity I expect that the services needed warrant INPATIENT care.: Yes I certify that my determination is in accordance with my understanding of Medicare's requirements for reasonable and necessary INPATIENT services [42 CFR 412.3e].: Yes Medical Necessity: Need For IV Fluids, Risk of Complication if Not Cared For in Hospital
[2017-12-16] MEDS ORDERED: DRONABINOL 2.5 MG CAPSULE ONE (18:29)
[2017-12-16] MEDS: DRONABINOL 2.5 MG CAPSULE PO SCH (18:33)
[2017-12-17 05:02] LABS: ABSOLUTE EOSINOPHILS # (AUTO) 0.3 10^3/uL (0.0-0.6); ABSOLUTE LYMPHOCYTES (AUTO) 0.7 10^3/uL (0.5-4.7); ABSOLUTE MONOCYTES (AUTO) 0.6 10^3/uL (0.1-1.4); ABSOLUTE NEUT (AUTO) 2.7 10^3/uL (1.7-8.2); BASOPHILS % (AUTO) 0.9 % (0-2); EOSINOPHILS % (AUTO) 6.4 % (0-6); HEMATOCRIT 38.6 % (36.0-47.0); HEMOGLOBIN 12.9 g/dL (12.0-15.5); LYMPHOCYTES % (AUTO) 16.5 % (13-45); MEAN CORPUSCULAR HEMOGLOBIN 30.2 pg (27.0-33.4); MEAN CORPUSCULAR HGB CONC 33.4 g/dL (32.0-36.0); MEAN CORPUSCULAR VOLUME 90 fl (80-97); MONOCYTES % (AUTO) 12.8 % (3-13); PLATELET COUNT 140 10^3/uL (150-450); RED BLOOD COUNT 4.27 10^6/uL (3.72-5.28); RED CELL DISTRIBUTION WIDTH 13.4 % (11.5-14.0); SEGMENTED NEUTROPHILS % (AUTO) 63.4 % (42-78); TOTAL CELLS COUNTED % (AUTO) 100 %; WHITE BLOOD COUNT 4.3 10^3/uL (4.0-10.5)
[2017-12-17 05:32] LABS: ANION GAP 9 (5-19); BLOOD UREA NITROGEN 12 mg/dL (7-20); CALCIUM 8.2 mg/dL (8.4-10.2); CARBON DIOXIDE 28 mmol/L (22-30); CHLORIDE 106 mmol/L (98-107); GLUCOSE 106 mg/dL (75-110); POTASSIUM 3.6 mmol/L (3.6-5.0); SODIUM 142.8 mmol/L (137-145)
--- NOTE | 2017-12-17 07:50 | PDOC PROGRESS REPORT ---
Subjective Progress Note for:: 12/17/17 Subjective:: Patient states that she did not feel well yesterday, but today she feels much better. She is hungry and believes she can eat today. No new complaints. Family asks about DVT prophylaxis. Reason For Visit: SYNCOPE ORTHOSTATIC HYPOTENSION,LUNG CA W Physical Exam Vital Signs: Temp Pulse Resp BP Pulse Ox 98.1 F 80 20 126/69 H 96 12/17/17 04:40 12/17/17 07:00 12/17/17 04:40 12/17/17 04:40 12/17/17 04:40 Intake & Output 12/16/17 12/17/17 12/18/17 06:59 06:59 06:59 Intake Total 797 Balance 797 Weight 65.4 kg General appearance: PRESENT: no acute distress Exam: 82 year old female with family at bedside. Respiratory exam: PRESENT: unlabored Neurological exam: PRESENT: alert, awake, oriented to person, oriented to place , oriented to time, oriented to situation Psychiatric exam: PRESENT: appropriate affect Skin exam: PRESENT: normal color Results Laboratory Results: 12/17/17 04:15 12/17/17 04:15 12/16/17 12/16/17 12/16/17 08:56 08:56 08:56 WBC RBC Hgb Hct MCV MCH MCHC RDW Plt Count Seg Neutrophils % Lymphocytes % Monocytes % Eosinophils % Basophils % Absolute Neutrophils Absolute Lymphocytes Absolute Monocytes Absolute Eosinophils Absolute Basophils Sodium 143.1 Potassium 3.7 Chloride 106 Carbon Dioxide 30 Anion Gap 7 BUN 10 Creatinine 0.55 Est GFR ( Amer) > 60 Est GFR (Non-Af Amer) > 60 Glucose 101 Calcium 7.9 L Phosphorus 3.1 TSH 0.32 L Free T4 1.64 12/16/17 12/17/17 12/17/17 08:56 04:15 04:15 WBC 4.2 4.3 RBC 4.41 4.27 Hgb 13.3 12.9 Hct 39.8 38.6 MCV 90 90 MCH 30.1 30.2 MCHC 33.4 33.4 RDW 13.0 13.4 Plt Count 145 L 140 L Seg Neutrophils % 63.4 Lymphocytes % 16.5 Monocytes % 12.8 Eosinophils % 6.4 H Basophils % 0.9 Absolute Neutrophils 2.7 Absolute Lymphocytes 0.7 Absolute Monocytes 0.6 Absolute Eosinophils 0.3 Absolute Basophils 0.0 Sodium 142.8 Potassium 3.6 Chloride 106 Carbon Dioxide 28 Anion Gap 9 BUN 12 Creatinine 0.52 Est GFR ( Amer) > 60 Est GFR (Non-Af Amer) > 60 Glucose 106 Calcium 8.2 L Phosphorus TSH Free T4 Impressions: Head CT 12/15/17 23:02 IMPRESSION: No acute CT findings. Patient has known left frontoparietal lesions demonstrated on prior MRI from November 2017 not discerned on this noncontrast CT. Assessment & Plan - Diagnosis (1) Stage IV squamous cell carcinoma of lung Qualifiers: Laterality: left Qualified Code(s): C34.92 - Malignant neoplasm of unspecified part of left bronchus or lung Is this a current diagnosis for this admission?: Yes Plan: Recently completed radiation to the brain for brain mets. No other evidence of disease. No further aggressive treatment planned at this point. (2) Orthostatic hypotension Is this a current diagnosis for this admission?: Yes Plan: Most likely secondary to inadequate nutrition and dehydration. Marinol was recently started, as she lost weight on dexamethasone. If no improvement in a few days, will increase marinol and then add steroids to the marinol if needed. - Plan Summary Plan Summary: Please feel free to call me with any questions or concerns.
[2017-12-17] MEDS: LEVOTHYROXINE SODIUM 0.1 MG TABLET PO SCH (08:31)
[2017-12-17] MEDS: NORMAL SALINE 1000 ML 1,000 ML IV PRN ×2 (08:32→20:17)
[2017-12-17] MEDS ORDERED: NORMAL SALINE 1000 ML 1,000 ML IV PRN (08:36)
[2017-12-17] MEDS: ENOXAPARIN SODIUM INJ 40 MG/0.4 ML DISP.SYRIN SUBCUT SCH (10:13)
[2017-12-17] MEDS: DRONABINOL 2.5 MG CAPSULE PO SCH ×2 (10:51→17:48)
[2017-12-17] MEDS: DOCUSATE SODIUM 100 MG CAPSULE PO SCH ×2 (10:52→17:49)
[2017-12-17] MEDS ORDERED: POLYVINYL ALCOHOL 1.4% OPH SOLN 15 ML OU PRN (10:58)
--- NOTE | 2017-12-17 10:59 | PDOC PROGRESS REPORT ---
Subjective Progress Note for:: 12/17/17 Subjective:: Feels better, no complaints other than some dry eyes. Reason For Visit: SYNCOPE ORTHOSTATIC HYPOTENSION,LUNG CA W Physical Exam Vital Signs: Temp Pulse Resp BP Pulse Ox 98.2 F 66 16 120/60 98 12/17/17 07:57 12/17/17 07:57 12/17/17 07:57 12/17/17 07:57 12/17/17 07:57 Intake & Output 12/16/17 12/17/17 12/18/17 06:59 06:59 06:59 Intake Total 797 Balance 797 Weight 65.4 kg General appearance: PRESENT: no acute distress Head exam: PRESENT: normocephalic Eye exam: PRESENT: PERRLA Mouth exam: PRESENT: moist Respiratory exam: PRESENT: symmetrical, unlabored Cardiovascular exam: PRESENT: RRR GI/Abdominal exam: PRESENT: normal bowel sounds, soft. ABSENT: tenderness Rectal exam: PRESENT: deferred Extremities exam: ABSENT: pedal edema Neurological exam: PRESENT: alert, awake, oriented to person, oriented to place , oriented to time, oriented to situation Psychiatric exam: PRESENT: appropriate affect Skin exam: ABSENT: petechiae Results Laboratory Results: 12/17/17 04:15 12/17/17 04:15 12/17/17 12/17/17 04:15 04:15 WBC 4.3 RBC 4.27 Hgb 12.9 Hct 38.6 MCV 90 MCH 30.2 MCHC 33.4 RDW 13.4 Plt Count 140 L Seg Neutrophils % 63.4 Lymphocytes % 16.5 Monocytes % 12.8 Eosinophils % 6.4 H Basophils % 0.9 Absolute Neutrophils 2.7 Absolute Lymphocytes 0.7 Absolute Monocytes 0.6 Absolute Eosinophils 0.3 Absolute Basophils 0.0 Sodium 142.8 Potassium 3.6 Chloride 106 Carbon Dioxide 28 Anion Gap 9 BUN 12 Creatinine 0.52 Est GFR ( Amer) > 60 Est GFR (Non-Af Amer) > 60 Glucose 106 Calcium 8.2 L Impressions: Head CT 12/15/17 23:02 IMPRESSION: No acute CT findings. Patient has known left frontoparietal lesions demonstrated on prior MRI from November 2017 not discerned on this noncontrast CT. Assessment & Plan - Diagnosis (1) Orthostatic hypotension Is this a current diagnosis for this admission?: Yes Plan: IV fluids, fall precautions, PT. Encourage PO intake. (2) Stage IV squamous cell carcinoma of lung Qualifiers: Laterality: left Qualified Code(s): C34.92 - Malignant neoplasm of unspecified part of left bronchus or lung Is this a current diagnosis for this admission?: Yes Plan: Management per Oncology - Time Time Spent with patient: 25-34 minutes
--- NOTE | 2017-12-17 13:15 | Physician Advisory Note ---
Physician Advisor ProgressNote .: Pursuant to the plan for [facility], I have reviewed the medical record for this patient. Physician Advisor Statement: Repeating orthostatics? STatus: (Medicare pt) Most pts w/syncope/orthostatic hypotension are most appropriate to come in as Obs, changing to Inpt after they prove need for a 2nd MN. However, this 82yo with stage 4 lung CA/brain mets has been having ongoing issues with poor appetite & poor intake for some time, which have not yet been reversed & keep her at risk for recurrent sx. She only just had XRT 5 days prior to adm. She failed to gain wt w/dexamethasone prior to just starting Marinol 48hrs prior to adm. She came in before MN on 12/15, has received 1L of IVF in ED & then 3L more so far as ongoing IVF (150/hr) over 2 more MNs, & attending is still not comfortable with discharge, although decreasing IVF rate today. PO supplements have been ordered, & strict I/Os, along with continued 5mg bid dosing of Marinol. Only today is pt documented saying she "feels she can eat today". PT notes she is a falls risk as she is unsteady, & although she can waslk 120ft w/FWWalker, she needs to be able to walk further to be safe at home. Appropriate for Inpatient status. CK
[2017-12-18 05:09] LABS: ABSOLUTE EOSINOPHILS # (AUTO) 0.3 10^3/uL (0.0-0.6); ABSOLUTE LYMPHOCYTES (AUTO) 0.7 10^3/uL (0.5-4.7); ABSOLUTE MONOCYTES (AUTO) 0.5 10^3/uL (0.1-1.4); ABSOLUTE NEUT (AUTO) 2.9 10^3/uL (1.7-8.2); BASOPHILS % (AUTO) 0.9 % (0-2); EOSINOPHILS % (AUTO) 6.8 % (0-6); HEMATOCRIT 39.7 % (36.0-47.0); HEMOGLOBIN 13.5 g/dL (12.0-15.5); LYMPHOCYTES % (AUTO) 15.7 % (13-45); MEAN CORPUSCULAR HEMOGLOBIN 30.6 pg (27.0-33.4); MEAN CORPUSCULAR HGB CONC 33.9 g/dL (32.0-36.0); MEAN CORPUSCULAR VOLUME 90 fl (80-97); MONOCYTES % (AUTO) 11.8 % (3-13); PLATELET COUNT 141 10^3/uL (150-450); RED CELL DISTRIBUTION WIDTH 13.4 % (11.5-14.0); SEGMENTED NEUTROPHILS % (AUTO) 64.8 % (42-78); TOTAL CELLS COUNTED % (AUTO) 100 %; WHITE BLOOD COUNT 4.5 10^3/uL (4.0-10.5)
[2017-12-18 05:38] LABS: ANION GAP 11 (5-19); BLOOD UREA NITROGEN 11 mg/dL (7-20); CALCIUM 8.6 mg/dL (8.4-10.2); CARBON DIOXIDE 28 mmol/L (22-30); CHLORIDE 105 mmol/L (98-107); GLUCOSE 108 mg/dL (75-110); POTASSIUM 3.6 mmol/L (3.6-5.0); SODIUM 143.6 mmol/L (137-145)
[2017-12-18] MEDS ORDERED: DRONABINOL 2.5 MG CAPSULE PO SCH (07:44)
--- NOTE | 2017-12-18 07:49 | PDOC PROGRESS REPORT ---
Subjective Progress Note for:: 12/18/17 Subjective:: Patient states that she is feeling better. She feels strong enough to get up and walk. Daughter at bedside is still concerned because patient is not eating or drinking and has not yet been out of bed to try to walk. ROS: No chest pain , No dyspnea, No nausea or constipation. Reason For Visit: SYNCOPE ORTHOSTATIC HYPOTENSION,LUNG CA W Physical Exam Vital Signs: Temp Pulse Resp BP Pulse Ox 98.2 F 77 20 128/67 H 95 12/18/17 03:49 12/18/17 03:49 12/18/17 03:49 12/18/17 03:49 12/18/17 03:49 Intake & Output 12/17/17 12/18/17 12/19/17 06:59 06:59 06:59 Intake Total 797 2854 Balance 797 2854 Weight 65.4 kg 66.3 kg General appearance: PRESENT: no acute distress Eye exam: PRESENT: PERRLA Respiratory exam: PRESENT: clear to auscultation corina, unlabored Cardiovascular exam: PRESENT: RRR. ABSENT: systolic murmur Neurological exam: PRESENT: alert, awake Psychiatric exam: PRESENT: appropriate affect Skin exam: PRESENT: normal color Results Laboratory Results: 12/18/17 04:12 12/18/17 04:12 12/18/17 12/18/17 04:12 04:12 WBC 4.5 RBC 4.40 Hgb 13.5 Hct 39.7 MCV 90 MCH 30.6 MCHC 33.9 RDW 13.4 Plt Count 141 L Seg Neutrophils % 64.8 Lymphocytes % 15.7 Monocytes % 11.8 Eosinophils % 6.8 H Basophils % 0.9 Absolute Neutrophils 2.9 Absolute Lymphocytes 0.7 Absolute Monocytes 0.5 Absolute Eosinophils 0.3 Absolute Basophils 0.0 Sodium 143.6 Potassium 3.6 Chloride 105 Carbon Dioxide 28 Anion Gap 11 BUN 11 Creatinine 0.50 L Est GFR ( Amer) > 60 Est GFR (Non-Af Amer) > 60 Glucose 108 Calcium 8.6 Impressions: Head CT 12/15/17 23:02 IMPRESSION: No acute CT findings. Patient has known left frontoparietal lesions demonstrated on prior MRI from November 2017 not discerned on this noncontrast CT. Assessment & Plan - Diagnosis (1) Stage IV squamous cell carcinoma of lung Qualifiers: Laterality: left Qualified Code(s): C34.92 - Malignant neoplasm of unspecified part of left bronchus or lung Is this a current diagnosis for this admission?: Yes Plan: No further treatment is planned. Will continue to palliate any symptoms that arise. (2) Orthostatic hypotension Is this a current diagnosis for this admission?: Yes Plan: Physical therapy consult today to assess safety at home and increase strength in ambulation. I will increase Marinol dose and if no improvement in appetite, may consider re-adding steroids. Encouraged patient to continue to eat and drink. She is still receiving IV fluids. - Plan Summary Plan Summary: I have explained to the patient that I believe she should be able to ambulate in the michelle safely before considering discharge home. I have encouraged her to do this today.
[2017-12-18] MEDS: LEVOTHYROXINE SODIUM 0.1 MG TABLET PO SCH (09:22)
[2017-12-18] MEDS: DOCUSATE SODIUM 100 MG CAPSULE PO SCH (09:30)
[2017-12-18] MEDS: ENOXAPARIN SODIUM INJ 40 MG/0.4 ML DISP.SYRIN SUBCUT SCH (09:30)
[2017-12-18] MEDS: NORMAL SALINE 1000 ML 1,000 ML IV PRN (09:32)
--- NOTE | 2017-12-18 10:04 | PDOC DISCHARGE SUMMARY ---
General - Admit/Disc Date/PCP Admission Date/Primary Care Provider: 12/16/17 04:31 REHANA DURAN MD Discharge Date: 12/18/17 - Additional Information Resuscitation Status: Full Code Discharge Diet: As Tolerated Discharge Activity: Activity As Tolerated Prescriptions: Dronabinol [Marinol] 10 mg PO BID #60 capsule Home Medications: Levothyroxine Sodium [Synthroid 0.1 mg Tablet] 0.1 mg PO Q6AM 12/16/17 Dronabinol [Marinol] 10 mg PO BID #60 capsule 12/18/17 History of Present Illness Patient complains of: altered mental status. 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 Patient presents with 2 hours of altered mental status found after apparently passing out onto the bed in a prone position. She denies palpitations, headache chest pain or dizziness prior and there was no subsequent injury, incontinence, limb shaking or postictal confusion. In the emergency room she is at baseline but found to have orthostatic hypotension with a blood pressure 77/57 she receives 1 L of normal saline and referred to the hospitalist for admission patient denies complaints. Hospital Course Hospital Course: 1 orthostatic hypotension Patient has a stage IV lung CA undergoing radiation therapy She had extremely poor intake with severe anorexia and was chronically on Norvasc 5 mg daily for hypertension Patient had orthostatic hypotension secondary to dehydration and poor p.o. intake Patient was treated with IV fluids Norvasc was held Blood pressure is now stable 2 ambulatory dysfunction Patient was extremely weak and unstable She was evaluated by physical therapy She now can ambulate safely with a walker; and will continue physical therapy at home 3 anorexia Marinol was increased; patient was encouraged to take supplements 4 patient was discharged with home health and home PT and visiting nurse to recheck patient's blood pressure at least twice a week Physical Exam Vital Signs: Temp Pulse Resp BP Pulse Ox 98.7 F 72 18 116/67 98 12/18/17 08:22 12/18/17 08:22 12/18/17 08:22 12/18/17 08:22 12/18/17 08:22 Intake & Output 12/17/17 12/18/17 12/19/17 00:59 00:59 00:59 Intake Total 247 2120 1284 Balance 247 2120 1284 Weight 63.503 kg 65.4 kg 66.3 kg General appearance: PRESENT: no acute distress, well-developed, well-nourished Eye exam: PRESENT: conjunctiva pink, EOMI, PERRLA. ABSENT: scleral icterus Mouth exam: PRESENT: moist, tongue midline Neck exam: ABSENT: carotid bruit, JVD, lymphadenopathy, thyromegaly Respiratory exam: PRESENT: clear to auscultation corina. ABSENT: rales, rhonchi, wheezes Cardiovascular exam: PRESENT: RRR. ABSENT: diastolic murmur, rubs, systolic murmur GI/Abdominal exam: PRESENT: normal bowel sounds, soft. ABSENT: distended, guarding, mass, organolmegaly, rebound, tenderness Neurological exam: PRESENT: alert, awake, oriented to person, oriented to place , oriented to time, oriented to situation, CN II-XII grossly intact. ABSENT: motor sensory deficit Results Laboratory Results: 12/18/17 04:12 12/18/17 04:12 12/18/17 12/18/17 04:12 04:12 WBC 4.5 RBC 4.40 Hgb 13.5 Hct 39.7 MCV 90 MCH 30.6 MCHC 33.9 RDW 13.4 Plt Count 141 L Seg Neutrophils % 64.8 Lymphocytes % 15.7 Monocytes % 11.8 Eosinophils % 6.8 H Basophils % 0.9 Absolute Neutrophils 2.9 Absolute Lymphocytes 0.7 Absolute Monocytes 0.5 Absolute Eosinophils 0.3 Absolute Basophils 0.0 Sodium 143.6 Potassium 3.6 Chloride 105 Carbon Dioxide 28 Anion Gap 11 BUN 11 Creatinine 0.50 L Est GFR ( Amer) > 60 Est GFR (Non-Af Amer) > 60 Glucose 108 Calcium 8.6 Impressions: Head CT 12/15/17 23:02 IMPRESSION: No acute CT findings. Patient has known left frontoparietal lesions demonstrated on prior MRI from November 2017 not discerned on this noncontrast CT. Qualifiers - * PATIENT BEING DISCHARGED WITH ANY OF THE FOLLOWING DIAGNOSIS: No Plan Discharge Plan: Discharge home with home health Follow-up with PMD in a week Follow-up with Dr. Heard as scheduled Time Spent: Greater than 30 Minutes
[2017-12-18 13:25] VITALS: BP 113/61
== END 2017-12-18 14:38 | disposition home health service (06) | DRG 312 ==
LOC: ER 22:22 → EH 12-16 04:31 → 3N 12-16 16:11
PROVIDERS: ADMIT Internal Medicine; ATTEND Internal Medicine
PROC: 3E0F73Z Introduction of Anti-inflammatory into Respiratory Tract, Via Natural or Artificial Opening (ICD-10-PCS; principal; 2017-12-16)
DX: I95.1 Orthostatic hypotension (principal); C79.31 Secondary malignant neoplasm of brain; E86.0 Dehydration; I10 Essential (primary) hypertension; Z82.49 Family history of ischemic heart disease and other diseases of the circulatory system; Z85.118 Personal history of other malignant neoplasm of bronchus and lung; R55 Syncope and collapse; R29.6 Repeated falls; R63.0 Anorexia; Z68.25 Body mass index [BMI] 25.0-25.9, adult; Z92.3 Personal history of irradiation; Z90.2 Acquired absence of lung [part of]
CPT/HCPCS: 36415; 70450; 80048; 80053; 81001; 82550; 82553; 83735; 84100; 84439; 84443; 84484; 85025; 85027; 85610; 85730; 93005; 93010; 96360; 99285; A9270-GY; G8978-GP; G8979-GP; J1644; J1650; J3490; J7030